=== PATIENT | female | born 1985 | race Caucasian/White ===

== ENCOUNTER 2020-11-23 21:23 | Emergency (ER) | payer OTHER ==
[2020-11-23 23:50] LABS: BASOPHIL 0.4 % (0-2); EOSINOPHIL 0.3 % (0-5); HCT 39.3 % (37.0-47.0); HGB 12.4 g/dl (12.5-16.0); LYMPHOCYTE 28.4 % (15-48); MCH 24.5 pg (25.0-31.0); MCHC 31.6 g/dL (32.0-36.0); MCV 77.7 fL (78.0-100.0); MPV 10.4 fL (6.0-9.5); NEUTROPHIL 63.5 % (41-80); NRBC 0; PLT 269 K/uL (150-400); RBC 5.06 M/uL (4.20-5.40); RDW 15.3 % (11.5-14.0); WBC 7.2 K/uL (4.0-10.5)
[2020-11-23 23:52] LABS: ALBUMIN 3.7 g/dL (3.4-5.0); BILIRUBIN - TOTAL 0.3 mg/dL (0.2-1.0); BUN/CREAT RATIO (CALC) 16.2 RATIO; CREATININE 0.74 mg/dL (0.51-0.95); GLOBULIN (CALCULATION) 3.9 g/dL; POTASSIUM 3.8 mmol/L (3.5-5.1); TOTAL PROTEIN 7.6 g/dL (6.4-8.2)
[2020-11-24] MEDS ORDERED: DECADRON6 MG PO (02:02)
[2020-11-24] MEDS ORDERED: PULMICORT FLE180 MCG INH (02:02)
[2020-11-24] MEDS ORDERED: ZITHROMAX500 MG PO (02:02)
[2020-11-24] MEDS ORDERED: VENTOLIN HFA IN18 GM INH (02:02)
[2020-11-24] MEDS ORDERED: HYDROCODONE-CH473 ML PO (02:02)
== END 2020-11-24 02:31 | disposition home or self-care (01) ==
LOC: FER 21:23
PROVIDERS: Emergency Medicine Emergency Medical Services
DX: U07.1 COVID-19 (principal); J12.82 Pneumonia due to coronavirus disease 2019
CPT/HCPCS: 36415; 71045; 80053; 85025; 93005; 94640; 94664; J1100